=== PATIENT | male | born 1990 | race Caucasian/White ===

== ENCOUNTER 2022-08-20 07:11 | Day surgery (SDC) | payer OTHER ==
[~2022-08-20] VITALS: Ht 170.2 cm; Wt 71.0 kg
--- NOTE | 2022-08-20 07:07 | NUR ---
PT ARRIVED TO SUITE ALONE, PT INFORMATION HAS BEEN DOCUMENTED AND PERSON OF CONTACT UPDATED ON PAPERWORK. PT HAS BEEN EXPLAINED OF POC. PT QUESTIONS HAVE BEEN ADDRESSED. PT HAS BEEN ORIENTED TO ROOM AND CALL LIGHT. PT HAS BEEN PLACED ON FALL PRECAUTIONS. PT VSS, NAD. PT HAS CALL LIGHT NEAR AND IS ABLE TO MAKE NEEDS KNOWN. WILL CONTINUE TO MONITOR.
[2022-08-20 07:10] VITALS: BP 126/95
[2022-08-20 07:29] LABS: HEMOGLOBIN 10.4 g/dl (14.0-18.0); MEAN CELL VOLUME 60.6 fL CALC (80.0-100.0); MEAN CORPUSCULAR HGB 18.5 pG CALC (26.0-32.0); MEAN CORPUSCULAR HGB CONC 30.6 g/dL CAL (32.0-36.0); NEUT# 1.56 thou/uL (1.82-7.42); RED BLOOD COUNT 5.61 mill/uL (4.70-6.10); RED CELL DISTRI WIDTH 17.2 % (11.5-15.5)
[2022-08-20 07:54] LABS: ALBUMIN 4.2 g/dL (3.2-5.0); ALKALINE PHOSPHATASE 63 u/l (38-126); ANION GAP 6 (6-22 (CALC)); BILIRUBIN, TOTAL 0.8 mg/dL (0.0-1.4); BUN 9 mg/dL (9-20); BUN/CREATININE RATIO 10 (12-20 (CALC)); CARBON DIOXIDE 35 mmol/l (22-30); CHLORIDE 103 mmol/l (95-108); CREATININE 0.8 mg/dL (0.7-1.3); GFR FOR AFR.AMER. > 60 ML/MIN (>=60 (CALC)); GFR OTHER RACES > 60 ML/MIN (>=60 (CALC)); POTASSIUM 4.5 mmol/l (3.5-5.1); SGOT/AST 38 u/l (17-59); SODIUM 139 mmol/l (137-146); TOTAL PROTEIN 6.4 g/dL (6.3-8.2)
[2022-08-20] MEDS ORDERED: GABAPENTIN100 MG PO ×2 (08:18→08:23)
[2022-08-20] MEDS ORDERED: KEPPRA250 M1 PO (08:21)
[2022-08-20] MEDS ORDERED: CITALOPRAM20 M1 PO (08:23)
[2022-08-20] MEDS ORDERED: SYNTHROID25 MCG PO (08:25)
[2022-08-20] MEDS ORDERED: LAMICTAL25 M2 PO (08:26)
[2022-08-20] MEDS ORDERED: HUMALOG100 UNIT SC (08:30)
--- NOTE | 2022-08-20 09:30 | NUR ---
PT IS SLEEPING, EASILY AROUSABLE. PT VSS. PT HAS CALL LIGHT NEAR AND IS IN NAD. NO CHANGE TO ASSESSMENT. WILL CONTNUE TO MONITOR.
--- NOTE | 2022-08-20 12:35 | NUR ---
Induction Note Patient to [facility] procedure room. Time out performed at 1235. Patient placed on monitors, Leena hugger, bilateral wrist restraints applied for ET tube protection. Versed 5mg given IV push at 1236 Tourniquet applied to RIGHT arm Lidocaine 100mg given at 1237 IV push followed by Rocoronium 10mg at 1238 IV push and held for 90 seconds. Propofol bolus of 120mg given at 1240 IV push. Succinylcholine 80mg given IV push at 1241. Smooth intubation with 7.5 ETT. Positive CO2. Positive Auscultation for air exchange. Patient placed on ventilator for spontaneous ventilation. Placed on Propofol IV drip at 1242. OG inserted. Positive air on auscultation. Positive gastric content. Stomach washed at this time.
--- NOTE | 2022-08-20 12:50 | NUR ---
OG close note Stomach washed at this time. Naltrexone 50 mg with Clonidine 0.2 mg via OG tube. OG will be clamped for 45 minutes.
--- NOTE | 2022-08-20 13:35 | NUR ---
OG open note OG open at this time. Gastric content draining into drainage bag. OG to drain for 45 minutes. Propofol will be titrated down based on patient.
--- NOTE | 2022-08-20 14:25 | NUR ---
OG close note Stomach washed at this time. Naltrexone 50 mg with Clonidine 0.2 mg via OG tube. OG will be clamped for 45 minutes.
[2022-08-20] MEDS ORDERED: NALTREXONE50 MG PO (15:31)
[2022-08-20] MEDS ORDERED: CLONIDINE0.1 MG PO (15:32)
[2022-08-20] MEDS ORDERED: KLONOPIN2 MG PO (15:33)
--- NOTE | 2022-08-20 16:00 | NUR ---
OG close note Stomach washed at this time. Naltrexone 25 mg with Clonidine 0.2 mg via OG tube. OG will be clamped for 45 minutes.
[2022-08-20 18:07] VITALS: BP 130/75
--- NOTE | 2022-08-20 18:50 | NUR ---
Extubation note Closing medications given Benadryl 50mg IV push, Decadron 10mg IV push,Magnesium 4 grams IV, Zofran 8mg IV push, Octreotide 100mcg SC. Stomach washed out prior to extubation. Suctioned gastric content. OG removed. Patient extubated. Propofol Discontinued. Wrist restraints removed. Leena hugger Removed. See [facility]R Moderate sedate recovery record for further notes and assessment.
--- NOTE | 2022-08-20 19:35 | NUR ---
PATIENT RESTING IN BED WITH HEAD OF BED SLIGHTLY ELEVATED. PATIENT APPEARS SLEEPING. NO SIGNS OF DISTRESS OBSERVED. BED REMAINS IN LOW POSITION. BED ALARM ACTIVE.
[2022-08-20 21:56] VITALS: BP 121/72
--- NOTE | 2022-08-21 00:03 | NUR ---
PATIENT RESTING IN BED TOWARDS HIS RIGHT SIDE. ABLE TO CHANGE POSITIONS ON HIS OWN. ALERT BUT DOESNT MAKE SENSE OF WHAT HES SAYING MOST OF THE TIME. PATIENT NEEDS FREQUENT REDIRECTING BUT IS PLEASANT. BED REMAINS IN LOW POSITION. BED ALARM ACTIVE.
[2022-08-21 03:28] VITALS: BP 119/58
--- NOTE | 2022-08-21 04:50 | NUR ---
PATIENT LAYING IN BED ON HIS LEFT SIDE. RECEIVED ALL 0400 MEDS WITHOUT DIFFICULTY. NO SIGNS OF DISTRESS. NO COMPLAINTS OF PAIN. BLOOD SUGARS CLOSELY MONITORED PER NURSING JUDGEMENT DUE TO PATIENT PREVIOUSLY BEING NPO FOR PROCEDURE AND HAVING AN INSULIN PUMP ON HIM. LAST BS 147. PATIENT IS ABLE TO DRINK WITHOUT DIFFICULTY. PT ABLE TO CHANGE POSITIONS IN BED. BED REMAINS IN LOW POSITION. BED ALARM ACTIVE.
[2022-08-21 05:25] LABS: HEMATOCRIT 31.6 % (39.0-50.0); IMMATURE GRANULOCYTES 0.2 % (0.0-5.0); MEAN CELL VOLUME 59.6 fL CALC (80.0-100.0); MEAN CORPUSCULAR HGB 18.9 pG CALC (26.0-32.0); MEAN CORPUSCULAR HGB CONC 31.6 g/dL CAL (32.0-36.0); NEUT# 3.46 thou/uL (1.82-7.42); RED BLOOD COUNT 5.3 mill/uL (4.70-6.10); RED CELL DISTRI WIDTH 16.9 % (11.5-15.5)
[2022-08-21 05:39] LABS: ALBUMIN 4.3 g/dL (3.2-5.0); ALKALINE PHOSPHATASE 69 u/l (38-126); ANION GAP 9 (6-22 (CALC)); BILIRUBIN, TOTAL 0.7 mg/dL (0.0-1.4); BUN 9 mg/dL (9-20); BUN/CREATININE RATIO 13 (12-20 (CALC)); CARBON DIOXIDE 28 mmol/l (22-30); CHLORIDE 108 mmol/l (95-108); CREATININE 0.7 mg/dL (0.7-1.3); GFR FOR AFR.AMER. > 60 ML/MIN (>=60 (CALC)); GFR OTHER RACES > 60 ML/MIN (>=60 (CALC)); MAGNESIUM 1.9 mg/dL (1.6-2.3); POTASSIUM 3.8 mmol/l (3.5-5.1); SGOT/AST 38 u/l (17-59); SODIUM 141 mmol/l (137-146); TOTAL PROTEIN 6.4 g/dL (6.3-8.2)
--- NOTE | 2022-08-21 06:50 | NUR ---
GOT REPORT FROM HEALTH SAFETY ENGINEER NURSE. PER NURSE PATIENT HAD AN UNEVENTFUL NIGHT AND RESTED WELL. PATIENT IS CURRENTLY ASLEEP IN BED. NO SXS OF DISTRESS. CALL LIGHT CAND BEDSIDE TABLE ARE WITHIN REACH OF PATIENT AND BED ALARM IS TURNED ON.
[2022-08-21 06:53] VITALS: BP 106/65
--- NOTE | 2022-08-21 14:02 | NUR ---
PATIENT IS AOX3, NO SXS OF DISTRESS. FEELS TIRED. ATE IS BREAKFAST AND LUNCH TODAY. TOOK A SHOWER AND RESTED. IV REMOVED. PATIENT BEING DISCHARGED AND WILL BE PICKED UP BY MOTHER.
== END 2022-08-21 14:27 | disposition home or self-care (01) | DRG 897 ==
LOC: MS2 07:11 → ANR 07:11 → MS2 07:12 → ANR 09:00
PROVIDERS: ATTEND Anesthesiology
DX: F11.20 Opioid dependence, uncomplicated (principal)
CPT/HCPCS: J1953; J2354